=== PATIENT | female | born 1985 | race Two or more races ===

== ENCOUNTER 2020-09-07 10:34 | Emergency (ER) | payer MEDICAID ==
[~2020-09-07] VITALS: Ht 157.5 cm; Wt 65.0 kg
[2020-09-07 12:04] VITALS: BP 94/62
[2020-09-07 12:08] LABS: BASOPHILS % (AUTO) 1 % (0-1); EOSINOPHILS % (AUTO) 1 % (1-7); LYMPHOCYTES % (AUTO) 48 % (22-44); MEAN CORPUSCULAR HEMOGLOBIN 33.8 pg (27.0-34.8); MEAN CORPUSCULAR HGB CONC 34.1 g/dL (32.4-35.8); MEAN PLATELET VOLUME 9.6 fL (7.4-10.4); MONOCYTES % (AUTO) 6 % (2-9); NEUTROPHILS % (AUTO) 44 % (42-75); PLATELET COUNT 217 x10^3/uL (130-400); RED BLOOD COUNT 4.23 x10^6/uL (3.82-5.3); RED CELL DISTRIBUTION WIDTH 13.7 % (9.6-15.2)
--- NOTE | 2020-09-07 12:09 | NUR ---
pt came in with pain/bruising to RUE after donating plasma on 09/02. CMS intact to RUE. awaiting lab and us results. call light in reach, pt sitting comfortably in bed.
[2020-09-07 12:11] LABS: MD NO
[2020-09-07 12:18] LABS: INTERNATIONAL NORMALIZED RATIO 1.02 (0.93-1.1); PROTHROMBIN TIME 10.9 Seconds (9.6-11.5)
--- NOTE | 2020-09-07 13:45 | NUR ---
PRECETPOR RN NOTE: PT REFUSING REPEAT VS FOR DISCHARGE. PT A&O, RESPS EVEN AND UNLABORED, CMS INTACT. PT HAS NO COMPLAINT AT THIS TIME.
--- NOTE | 2020-09-07 14:02 | NUR ---
pt awake, alert, resp unlabored even bilat. discharge instructions given, patient verbalized understanding. ambulated to dicharge desk with steady gait.
== END 2020-09-07 14:10 | disposition home or self-care (01) ==
LOC: ED 14:00
DX: M79.621 Pain in right upper arm (principal)
CPT/HCPCS: 36415; 85025; 85610; 99284

== ENCOUNTER 2020-12-03 21:20 | Emergency (ER) | payer MEDICAID ==
[~2020-12-03] VITALS: Ht 160 cm; Wt 67.0 kg
[2020-12-03 21:51] VITALS: BP 103/56
[2020-12-03] MEDS ORDERED: DEXAMETHASONE 4 MG TABLET PO ONE (22:00)
[2020-12-03] MEDS ORDERED: DEXAMETHASONE 4 MG TABLET ONE (22:02)
--- NOTE | 2020-12-03 22:05 | NUR ---
PT CAME INTO THE ED WITH C/O SORE THROAT X2 WEEKS, ALSO C/O COUGH AND FATIGUE PT STATES HER SWOLLEN THROAT MAKES IT HARD TO SWALOOW. DENIES CP, SOB, AND HEADACHE. ATTACHED TO MONITORS, VSS, NADN. PT AMBULATED TO ROOM. CHANGED INTO GOWN. BED IN LOW POSITION, RAILS ENAGGED. CALL LIGHT WITHIN REACH.
--- NOTE | 2020-12-03 23:13 | NUR ---
Patient/Caregiver given discharge instructions and they have confirmed that they understand the instructions. Patient ambulatory with steady gait. NAD, all questions answered appropriately, denies additional needs at this time. No personal belongings left in room after discharge. PT REFUSED VITAL SIGNS BEFORE DC. CAUGHT PT WALKING OUT AND WAS ABLE TO EXPLAIN DC INSTRUCTIONS TO HER BEFORE SHE LEFT.
== END 2020-12-03 23:33 | disposition home or self-care (01) ==
LOC: ED 21:20
DX: J02.8 Acute pharyngitis due to other specified organisms (principal); B34.9 Viral infection, unspecified
CPT/HCPCS: 71045; 87081; 87880; 99284